=== PATIENT | female | born 1950 | race Caucasian/White ===

== ENCOUNTER → 2024-03-30 10:56 | Outpatient (REF) | payer MEDICARE, OTHER, SELFPAY | LOC: HWRAD 10:56 | PROVIDERS: ATTENDING PHYSICIAN Otolaryngology; FAMILY PHYSICIAN Internal Medicine | DX: R09.81 Nasal congestion (principal); J32.0 Chronic maxillary sinusitis | CPT/HCPCS: 70486 ==

== ENCOUNTER 2024-06-09 06:12 | Day surgery (SDC) | payer MEDICARE, OTHER, SELFPAY ==
[2024-05-18 12:19] VITALS: BMI 21.5
[2024-06-09] VITALS (8 sets, daily range): BP systolic 136–165; BP diastolic 78–93; BMI 21.5
[2024-06-09] MEDS: NORMOSOL-R/PLASMALYTE-A 1000 IV (10:45)
[2024-06-09] MEDS: MORPHINE SULFATE 1 MG IV (14:34)
== END 2024-06-09 16:35 | disposition home or self-care (01) ==
LOC: SDS 06:12
PROVIDERS: ATTENDING PHYSICIAN Otolaryngology; FAMILY PHYSICIAN Family Medicine
DX: J33.1 Polypoid sinus degeneration (principal); J32.9 Chronic sinusitis, unspecified; J34.2 Deviated nasal septum
CPT/HCPCS: 31267; 31255; 88304; 88311

== ENCOUNTER → 2024-07-08 12:02 | Outpatient (REF) | payer MEDICARE, OTHER, SELFPAY | LOC: HWRAD 12:02 | PROVIDERS: ATTENDING PHYSICIAN Internal Medicine Rheumatology; FAMILY PHYSICIAN Family Medicine | DX: M19.011 Primary osteoarthritis, right shoulder (principal); M81.0 Age-related osteoporosis without current pathological fracture | CPT/HCPCS: 73030 ==